=== PATIENT | female | born 1970 | race Caucasian/White ===

== ENCOUNTER 2024-01-25 09:09 | Outpatient (CLI) | payer OTHER, SELFPAY ==
--- NOTE | ~2024-01-25 | MM_ITS ---
EXAMINATION: MM screening doreen BI w steven HISTORY: Screening mammogram TECHNIQUE: Craniocaudal and mediolateral oblique 3-D tomosynthesis images were obtained and synthetic 2-D images were generated. CAD analysis was submitted and interpreted. COMPARISON: No prior mammogram is available for comparison at this institution. BREAST PARENCHYMAL COMPOSITION: There are scattered areas of fibroglandular density. FINDINGS: There is no evidence of suspicious mass, calcification, or architectural distortion to sugg est malignancy in either breast.. IMPRESSION: 1. No mammographic evidence of malignancy. 2. Recommend routine screening mammography in one year. BI-RADS Category 1: Negative Reviewed, dictated and finalized at location A.
== END 2024-01-25 09:10 | disposition home or self-care (01) ==
LOC: ANHIMG 09:12
PROVIDERS: PCP Family Medicine; Visit Provider Family Medicine
DX: Z12.31 Encounter for screening mammogram for malignant neoplasm of breast (principal)
CPT/HCPCS: 77063; 77067

== ENCOUNTER 2024-01-27 09:32 | Outpatient (CLI) | payer OTHER, SELFPAY ==
--- NOTE | ~2024-01-27 | CT_ITS ---
EXAMINATION: CT lung screening DATE: 01/27/2024 09:44 INDICATION: Z87.891 - Personal history of nicotine dependence TECHNIQUE: Computed tomography (CT) of the chest was performed without intravenous contrast. Addition al 3D reconstructions utilizing coronal maximum intensity projection (MIP) were performed. Automated exposure control and iterative reconstruction technique were employed. The dose-length product was 41 8.99 mGy-cm. COMPARISON: None FINDINGS: <3 mm nodule at the posterior sulcus of the right lower lobe. No other suspicious pulmonary nodules, pneumonia, pulmonary edema, pleural effusion or pneumothorax. Heart size is normal. Small amount of a therosclerotic coronary artery calcific location. No pericardial effusion. Thoracic aorta is normal i n caliber. No pathologically enlarged thoracic lymphadenopathy. Small hepatic calcification consisten t with old granulomatous disease. Mild thoracic spondylosis. IMPRESSION: 1. Lung-RADS category 2: Benign appearance or behavior. Continue annual screening with noncontrast lo w-dose chest CT in 12 months. Reviewed, dictated and finalized at location A. IMPRESSION: 1. Lung-RADS category 2: Benign appearance or behavior. Continue annual screeni ng with noncontrast low-dose chest CT in 12 months.
== END 2024-01-27 09:33 ==
LOC: MICIMG 09:33
PROVIDERS: PCP Physician Assistant; Visit Provider Physician Assistant
DX: Z12.2 Encounter for screening for malignant neoplasm of respiratory organs (principal); Z87.891 Personal history of nicotine dependence
CPT/HCPCS: 71271

== ENCOUNTER 2024-06-05 11:55 | Emergency (ER) | payer OTHER, SELFPAY ==
--- NOTE | ~2024-06-05 | XR_ITS ---
EXAMINATION: XR chest 2V DATE: 06/05/2024 12:17 INDICATION: Cough. TECHNIQUE: Frontal and lateral views of the chest were obtained. COMPARISON: Chest CT 01/27/2024 FINDINGS: There is no pneumonia, pleural effusion, or pneumothorax. The heart size is normal. IMPRESSION: 1. No acute cardiopulmonary disease. Reviewed, dictated and finalized at location A.
--- NOTE | 2024-06-05 12:02 | ED.URI ---
HPI - URI/Sore Throat General Chief Complaint: Upper Respiratory Infection Stated Complaint: Cough Time Seen by Provider: 06/05/24 12:08 Source: patient, RN notes reviewed and old records reviewed Mode of arrival: ambulatory Limitations: no limitations History of Present Illness HPI Narrative: 53-year-old female presents to the [facility] with a 10 day history of a cough. Has tried treating it at home. Patient is a smoker Treatments prior to arrival: cold medicine Related Data Allergies Allergy/AdvReac Type Severity Reaction Status Date / Time No Known Allergies Allergy Verified 06/05/24 12:01 Review of Systems Review of Systems: All systems reviewed & are unremarkable except as noted in HPI and below Constitutional: Constitutional: Reports no additional constitutional complaints Eyes: Eyes: Reports no additional eye complaints ENT: Reports system reviewed and no additional complaints, except as documented Cardiovascular: Cardiovascular: Reports no additional cardiovascular complaints, Denies chest pain and Denies dyspnea Respiratory: Respiratory: Reports as per HPI, Denies chest congestion, Reports cough and Denies dyspnea Gastrointestinal: Gastrointestinal: Reports no additional gastrointestinal complaints, Denies abdominal pain, Denies nausea and Denies vomiting Musculoskeletal: Musculoskeletal: Reports no additional musculoskeletal complaints Integumentary/Breasts: Skin/Breast: Reports system reviewed and no additional complaints, except as docu Neurologic: Reports system reviewed and no additional complaints, except as documented Psychiatric: Psychiatric: Reports no additional psychiatric complaints Allergic/Immunologic: Allergic/Immunologic: Reports no additional allergic/immunologic complaints [facility] Past Medical History Medical History Hyperlipidemia Type 2 diabetes mellitus Surgical History Surgical History History of delivery Family History Family History Mother Diabetes mellitus Hypertension Social History Social History Social History: Single Smoking packs per day: 1 Smoking cigarettes per day: 20.0 Years smoked: 45 Smoking pack-years: 45.00 Smoking status: Former smoker Tobacco type: cigarettes and e-cigarettes/vaping Second hand tobacco smoke exposure: No Smoking end date: 09/16/23 Alcohol intake: never Substance use: never Substance use type: does not use Do You Feel Safe in your Home?: Yes Lack of Transportation: No Lack of Food: Never True Current Housing: I Have Housing Concerned About Future Housing: No Difficulty Paying Gas/Electric Bills: No Difficulty Paying for Meds: No Currently Unemployed: No Education: Don't Know Difficulty w/ Childcare or Family Care: No Living arrangements: with family Occupation/Education: occupation Additional occupation/education comments: [employer] Gender identity (if verbalized by the patient): Female Sexual Orientation (if Verbalized by the Patient): Straight or Heterosexual Comments At the time of my signature, I reviewed and agree with the nursing past medical, surgical, social, and family history. There is no relevant family history pertinent to the patient complaint. Exam Const: General: cooperative, healthy appearing, comfortable, no acute distress, well developed, alert and well nourished Nutritional Appearance: well nourished Orientation/consciousness: patient oriented x3 Limitations: no limitations HENMT: Head: normal to inspection Ears: hearing grossly normal bilaterally, external ears normal, TM's normal bilaterally, EAC's normal, mastoids normal and no periauricular adenopathy Face/Nose/Sinus: Normal external nose present, Normal nares present, Aniya
[2024-06-05 12:05] VITALS: BP 132/74; PULSE 86; RESP 19; TEMP 36.8; O2SAT 96
[2024-06-05 12:22] LABS: EDCOVIDSCREEN Negative (Negative); EDINFLUASCREEN Negative (Negative); EDINFLUBSCREEN Negative (Negative)
== END 2024-06-05 13:00 | disposition home or self-care (01) ==
PROVIDERS: Emergency Provider Nurse Practitioner; PCP Family Medicine
DX: J40 Bronchitis, not specified as acute or chronic (principal); Z20.822 Contact with and (suspected) exposure to COVID-19; Z87.891 Personal history of nicotine dependence; E78.5 Hyperlipidemia, unspecified; E11.9 Type 2 diabetes mellitus without complications
CPT/HCPCS: 71046; 87635; 87804; 99213; G0463

== ENCOUNTER 2025-01-29 11:33 | Outpatient (CLI) | payer OTHER, SELFPAY ==
--- NOTE | ~2025-01-29 | CT_ITS ---
CT Scan of the Chest without Contrast: Clinical Indication: Lung cancer screening, nicotine dependence Technique: Contiguous sections were acquired throughout the chest without intravenous contrast. Dose reduction technique was used on this scan by utilizing automated exposure control and iterative recon struction technique. The dose-length product (DLP) was 265.36 mGy-cm. COMPARISON: 01/27/2024 Findings: There is no evidence of any significant mediastinal, hilar or axillary lymphadenopathy. The mediastin al soft tissues appear normal. There is no evidence of pleural or pericardial effusion. The lungs are clear. No pulmonary nodules or infiltrates are noted. Images through the upper abdomen reveal no abnormalities. Impression: Lung RADS 1: Negative. 12 month follow-up screening CT advised. Reviewed, dictated and finalized at location . Impression: Lung RADS 1: Negative. 12 month follow-up screening CT advised.
== END 2025-01-29 11:34 | disposition home or self-care (01) ==
PROVIDERS: PCP Family Medicine; Visit Provider Physician Assistant
DX: Z12.2 Encounter for screening for malignant neoplasm of respiratory organs (principal); Z87.891 Personal history of nicotine dependence
CPT/HCPCS: 71271